=== PATIENT | female | born 1950 | race Caucasian/White ===

== ENCOUNTER → 2022-06-29 12:38 | Outpatient (CLI) | payer MEDICARE, OTHER, SELFPAY ==
--- NOTE | 2022-06-29 | DI.US.S_ITS ---
PROCEDURE: US PERIPH VENOUS LOW EXTREM LT INDICATIONS: Lower left leg pain TECHNIQUE: Real-time imaging, as well as color and pulse Doppler interrogation, were performed of the lower extremity deep veins from the inguinal ligament to the popliteal fossa. COMPARISON: None. FINDINGS: The common femoral, femoral and popliteal veins are normally compressible, and free of intraluminal thrombus. Color and pulse Doppler demonstrate normal phasic intraluminal flow. There is normal augmentation response to distal compression maneuver. IMPRESSION: Negative for deep venous thrombosis. Dictated by: Sebastian Nunez M.D. on 06/29/2022 at 15:43 Approved by: Sebastian Nunez M.D. on 06/29/2022 at 15:44
== END ==
PROVIDERS: PCP Nurse Practitioner Family; Referring Provider Nurse Practitioner Family; Visit Provider Nurse Practitioner Family
DX: I87.2 Venous insufficiency (chronic) (peripheral) (principal); M79.662 Pain in left lower leg
CPT/HCPCS: 93971